=== PATIENT | female | born 1995 | race American Indian/Alaskan Native ===

== ENCOUNTER 2018-09-26 12:29 | Emergency (ER) | payer OTHER ==
[2018-09-26 12:38] VITALS: BP 116/53
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
--- NOTE | 2018-09-26 13:12 | XRay Report ---
RIGHT SHOULDER RADIOGRAPHS INDICATION: Right shoulder pain. COMPARISON: None similar at this institution. FINDINGS: Frontal and Y views of the right shoulder, 3 projections demonstrate normal humeral head contour, well positioned against the glenoid. Normal acromioclavicular joint. Preserved scapular contour. Normal visualized soft tissues, right ribs and lung. CONCLUSION: No acute right shoulder radiographic abnormality, as described. Thank you for the opportunity to participate in this patient's care.
--- NOTE | 2018-09-26 14:18 | Emergency Department Report ---
HPI - General Chief Complaint: Shoulder Injury Time Seen by Provider: 09/26/18 12:35 - HPI HPI: 22-year-old -[place] female presents to the emergency department with complaint of right shoulder pain. The patient says that she is double jointed and earlier today the right shoulder popped out of place and then back in spontaneously. She denies any previous history of a shoulder dislocation but says that it happened to her knee one time. She is right-hand dominant. She has not taken anything for her symptoms prior to arrival. ED Past Medical Hx - Past Medical History Hx Asthma: Yes - Surgical History Past Surgical History?: No - Social History Smoking Status: Never Smoker Substance Use Type: None - Medications Home Medications: Home Medications Medication Instructions Recorded Confirmed Last Taken Type RX: Ibuprofen 400 mg PO Q8H PRN #20 tablet 09/26/18 Unknown Rx ED Review of Systems ROS: Stated complaint: POSS (R) SHOULDER DISLOCATED Other details as noted in HPI Comment: All other systems reviewed and negative Constitutional: denies: chills, fever Eyes: denies: eye pain, vision change ENT: denies: ear pain, throat pain Respiratory: denies: cough, shortness of breath Cardiovascular: denies: chest pain, palpitations Gastrointestinal: denies: abdominal pain, vomiting Genitourinary: denies: dysuria, discharge Musculoskeletal: arthralgia. denies: back pain, joint swelling Skin: denies: rash, lesions Neurological: denies: headache, weakness Physical Exam - Physical Exam Vital Signs: Vital Signs 09/26/18 12:35 Temperature 99.4 F Pulse Rate 93 H Respiratory 18 Rate Blood Pressure 116/53 O2 Sat by Pulse 99 Oximetry Physical Exam: GENERAL: The patient is well-developed well-nourished. HEENT: Normocephalic. Atraumatic. Patient has moist mucous membranes. EYES: Extraocular motions are intact. NECK: Supple. Trachea is midline. CHEST/LUNGS: Clear to auscultation. There is no respiratory distress noted. HEART/CARDIOVASCULAR: Regular. There is no tachycardia. There is no obvious murmur. ABDOMEN: There is no abdominal distention. SKIN: Skin is warm and dry. NEURO: The patient is awake, alert, and oriented. The patient is cooperative. The patient has normal speech. MUSCULOSKELETAL: There is some mild tenderness to palpation to the right shoulder but no obvious deformity. There is no limitation range of motion. Radial pulse +2 over 4 and capillary refill less than 2 seconds to the affected right upper extremity. ED Course Vital Signs 09/26/18 12:35 Temperature 99.4 F Pulse Rate 93 H Respiratory 18 Rate Blood Pressure 116/53 O2 Sat by Pulse 99 Oximetry ED Medical Decision Making - Radiology Data Radiology results: image reviewed interpreted by me: X-ray of the right shoulder does not show any fracture, dislocation or any acute process. - Medical Decision Making This patient presents to the emergency department with the complaint that she had a right shoulder dislocation and then spontaneous reduction and still has some discomfort in the area. An x-ray was done that does not show any fracture, dislocation or any acute process. The shoulder joint does not appear to be lax but there could be underlying tendon or ligament injury or disruption. The patient will be given a referral for orthopedists and understands that she may need an MRI in the near future if she continues to have discomfort. - Differential Diagnosis shoulder dislocation, shoulder sprain, arthritis, tendinitis Critical Care Time: No Critical care attestation.: If time is entered above; I have spent that time in minutes in the direct care of this critically ill patient, excluding procedure time. ED Disposition Clinical Impression: Right shoulder pain Qualifiers: Chronicity: acute Qualified Code(s): M25.511 - Pain in right shoulder Disposition: - TO HOME OR SELFCARE Is pt being admited?: No Condition: Stable Instructions: Shoulder Dislocation (ED), Arthralgia (ED) Additional Instructions: Please follow up with an orthopedist regarding your right shoulder pain and lower concern for a spontaneous shoulder dislocation and reduction. Return to [facility] emergency Department with any worsening of her symptoms or any acute distress. Prescriptions: RX: Ibuprofen 400 mg PO Q8H PRN #20 tablet PRN Reason: Pain , Severe (7-10) Referrals: LYLE AMADOR MD [Staff Physician] - 2-[address] [facility] [Provider Group] - 2-3 Days Time of Disposition: 14:18
== END 2018-09-26 14:30 | disposition home or self-care (01) ==
LOC: ED 12:29
DX: M25.511 Pain in right shoulder (principal); J45.909 Unspecified asthma, uncomplicated